=== PATIENT | female | born 1940 | race American Indian/Alaskan Native ===

== ENCOUNTER 2019-05-06 09:11 | Outpatient (CLI) | payer MEDICARE, OTHER ==
--- NOTE | 2019-05-06 13:36 | Cat Scan Report ---
CTA ABDOMEN, PELVIS AND LOWER EXTREMITIES HISTORY: Essential hypertension, leg pain COMPARISON: None. TECHNIQUE: Routine postcontrast CT angiography of the abdomen, pelvis and lower extremities performed . Multiplanar/MIP/3D reformats were post-processed on an independent free-standing workstation. All C T scans at this location are performed using CT dose reduction for ALARA by means of automated exposu re control. Percent stenosis measurements are based on criteria similar to NASCET. CONTRAST: 100 ml of Omnipaque 350 FINDINGS: CTA ABDOMEN: Abdominal Aorta: Mild atherosclerotic plaque without any aneurysm. Celiac Artery: No significant abnormality. Superior Mesenteric Artery: No significant abnormality. Renal Arteries: Right: Mild plaque without stenosis. Left: Mild plaque without significant stenosis. Inferior Mesenteric Artery: Mild plaque at the origin without appreciable significant stenosis. CTA PELVIS: RIGHT: Common Iliac Artery: Mild to moderate atherosclerotic plaque without any flow-limiting stenosis or an eurysm Internal Iliac Artery: Mild atherosclerosis without aneurysm or stenosis. External Iliac Artery: Mild atherosclerosis without aneurysm or stenosis. LEFT: Common Iliac Artery: Moderate atherosclerotic plaque without aneurysm. Focal 70% stenosis in the dist al left common iliac artery just proximal to the bifurcation due to mixed plaque. Internal Iliac Artery: Mild atherosclerosis without significant stenosis. External Iliac Artery: Mild atherosclerosis without significant stenosis. CTA LOWER EXTREMITIES: RIGHT LOWER EXTREMITY: Common Femoral Artery: Mild atherosclerosis without significant stenosis. Superficial Femoral Artery: No significant abnormality. Profunda Femoral Artery: No significant abnormality. Popliteal Artery: No significant abnormality. Anterior Tibial Artery: No significant abnormality. Tibioperoneal Trunk: No significant abnormality. Posterior Tibial Artery: No significant abnormality. Peroneal Artery: No significant abnormality. Ankle runoff: Three vessel. LEFT LOWER EXTREMITY: Common Femoral Artery: Mild atherosclerosis without significant stenosis. Superficial Femoral Artery: No significant abnormality. Profunda Femoral Artery: No significant abnormality. Popliteal Artery: No significant abnormality. Anterior Tibial Artery: No significant abnormality. Tibioperoneal Trunk: No significant abnormality. Posterior Tibial Artery: No significant abnormality. Peroneal Artery: No significant abnormality. Ankle runoff: Three vessel. NONTARGET STRUCTURES: ABDOMEN: GI:Tiny hemangioma noted in the anterior left hepatic lobe. :A proximally 4 cm cyst in the upper pole of the right kidney. Lymphatics:No significant abnormality. PELVIS: :No significant abnormality. LOWER EXTREMITIES: Musculoskeletal:There are innumerable tiny lucent lesions in the bones of the axial skeleton, partic ularly in both iliac wings but also present in the spine. Osseous Structures: There are innumerable tiny lucent lesions in the bones of the axial skeleton, par ticularly in both iliac wings but also present in the spine. Additional Findings: None IMPRESSION: 1. 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 The only site of flow-limiting st enosis is in the distal left common iliac artery. No significant aneurysm. 2. Multiple small lucent lesions in the bones of the axial skeleton raises the possibility of an unde rlying bone malignancy such as multiple myeloma or metastatic disease. Recommend correlation with lab oratory workup, skeletal survey and possible bone marrow biopsy. Signer Name: Yuriy Charles MD Signed: 05/06/2019 1:31 PM Workstation Name: [id number]
== END 2019-05-06 09:12 | disposition home or self-care (01) ==
LOC: CT 09:11
PROVIDERS: ATTEND Internal Medicine Cardiovascular Disease
DX: N28.1 Cyst of kidney, acquired (principal); I70.203 Unspecified atherosclerosis of native arteries of extremities, bilateral legs; I77.1 Stricture of artery
CPT/HCPCS: 36415; 75635; 82565; 84520; Q9967